=== PATIENT | female | born 1980 | race Caucasian/White ===

== ENCOUNTER 2017-08-18 11:53 | Emergency (ER) | payer OTHER | END 2017-08-18 13:02 | disposition home or self-care (01) | LOC: NAV ERS 11:53 | DX: J01.90 Acute sinusitis, unspecified (principal); I10 Essential (primary) hypertension; F41.9 Anxiety disorder, unspecified; F32.9 Major depressive disorder, single episode, unspecified; Z79.899 Other long term (current) drug therapy | CPT/HCPCS: 99283 ==

== ENCOUNTER 2018-03-29 20:23 | Emergency (ER) | payer OTHER ==
[2018-03-29] MEDS ORDERED: predniSONE 20 MG TAB ONE (20:41)
[2018-03-29] MEDS ORDERED: diphenhydrAMINE 50 MG/ML VIAL ONE (20:41)
== END 2018-03-29 22:00 | disposition home or self-care (01) ==
LOC: NAV ERS 20:23
DX: L25.9 Unspecified contact dermatitis, unspecified cause (principal); F32.9 Major depressive disorder, single episode, unspecified; F41.9 Anxiety disorder, unspecified; F98.8 Other specified behavioral and emotional disorders with onset usually occurring in childhood and adolescence; I10 Essential (primary) hypertension; Z79.899 Other long term (current) drug therapy
CPT/HCPCS: 96372; J1200; J7506

== ENCOUNTER 2023-02-16 21:10 | Emergency (ER) | payer OTHER ==
[2023-02-16] MEDS ORDERED: Boostrix 0.5 ML (Tdap) VIAL (>/=7 yrs of age) ONE (22:05)
[2023-02-16] MEDS ORDERED: Sulfameth/Trimethoprim DS 800-160mg TAB ONE (22:05)
[2023-02-16] MEDS ORDERED: Amoxicillin/Potassium Clav 875 MG TAB ONE (22:05)
== END 2023-02-16 23:00 | disposition home or self-care (01) ==
LOC: NAV ERS 21:10
DX: S91.311A Laceration without foreign body, right foot, initial encounter (principal); L03.115 Cellulitis of right lower limb; I10 Essential (primary) hypertension; Z79.899 Other long term (current) drug therapy; Z23 Encounter for immunization; W54.0XXA Bitten by dog, initial encounter
CPT/HCPCS: 90471; 90715; 99283